=== PATIENT | male | born 1995 | race Caucasian/White ===

== ENCOUNTER 2019-07-24 16:09 | Emergency (ER) | payer OTHER ==
--- NOTE | 2019-07-24 16:41 | ED Physician Documentation ---
PD HPI LOWER EXT INJURY - Stated complaint Stated Complaint: RT KNEE, LEFT FOOT PX - Chief complaint Chief Complaint: Ext Problem - History obtained from History obtained from: Patient (He has had on and off troubles with the right knee for as long as he can remember. It laid him up for about a week last year and is becoming more frequent. Complains of anteromedial knee pain and today cannot walk because of it. Also has pain on the bottom of the left foot. There was no specific injury.) Review of Systems Constitutional: reports: Reviewed and negative Nose: reports: Reviewed and negative Cardiac: reports: Reviewed and negative Respiratory: reports: Reviewed and negative PD PAST MEDICAL HISTORY - Past Medical History Past Medical History: No - Past Surgical History Past Surgical History: No - Present Medications Home Medications: Ambulatory Orders Medication Instructions Recorded Confirmed Ibuprofen [Motrin] 800 mg PO Q8H PRN #30 tablet 07/24/19 - Social History Does the pt smoke?: No Smoking Status: Never smoker Does the pt drink ETOH?: No Does the pt have substance abuse?: No - Immunizations Immunizations are current?: Yes - POLST Patient has POLST: No PD ED PE NORMAL - Vitals Vital signs reviewed: Yes - General General: Alert and oriented X 3, No acute distress - Extremities Extremities: Other (The right knee has a small effusion, no tenderness, no warmth. He has a lot of pain with extension. Ligamentous testing is normal. He did not tolerate grind testing well. The left foot is tender over the plantar fascial without deformity warmth or mass.) - Neuro Neuro: Alert and oriented X 3, Normal speech Results - Vitals Vitals: Vital Signs - 24 hr 07/24/19 16:16 Temperature 36.5 C Heart Rate 129 H Respiratory 16 Rate Blood Pressure 152/114 H O2 Saturation 99 - Rads (name of study) 4 view x-ray of the right knee Radiology: EMP read contemporaneously (Small effusion otherwise negative) Departure - Departure Disposition: 01 Home, Self Care Clinical Impression: Internal derangement of right knee, Plantar fascial fibromatosis of right foot Condition: Good Record reviewed to determine appropriate education?: Yes Instructions: ED Meniscal Injury Knee Poss, ED Plantar Fasciitis Prescriptions: Ibuprofen [Motrin] 800 mg PO Q8H PRN #30 tablet PRN Reason: PAIN &/OR FEVER Comments: I am a little worried about the possibility of a meniscus problem on the right[place] Return for new or worsening symptoms. Do the exercises as shown for the plantar fasciitis in the left foot Your blood pressure was elevated today on check into the emergency department. This does not mean that you have hypertension, it is a common phenomenon to come to the emergency department and have elevated blood pressure. I recommend that you see your primary care physician within the week to have it rechecked when you are feeling better. Max dose ibuprofen is 800mg four times a day Next dose of Tylenol is: 2 x 500 mg tablets (1000 mg), not more than 3-4 times a day Forms: Activity restrictions
--- NOTE | 2019-07-24 17:32 | XRAY Report ---
Reason: knee pain Procedure Date: 07/24/2019 Accession Number: [id number] / [id number] Procedure: XR - Knee 4 View RT CPT Code: Final Report FULL RESULT: EXAM: RIGHT KNEE RADIOGRAPHY EXAM DATE: 07/24/2019 04:58 PM. CLINICAL HISTORY: Knee pain. COMPARISON: None. TECHNIQUE: 3 views. FINDINGS: Bones: Normal. No fractures or bone lesions. Joints: Normal. No effusion. No subluxations. Soft Tissues: Normal. No soft tissue swelling. IMPRESSION: 1. Negative for focal bony abnormality. 2. Small suprapatellar recess joint fluid. RADIA
[2019-07-24 18:02] VITALS: BP 156/103
== END 2019-07-24 18:06 | disposition home or self-care (01) ==
LOC: ED 16:09
DX: M23.91 Unspecified internal derangement of right knee (principal); M72.2 Plantar fascial fibromatosis; R03.0 Elevated blood-pressure reading, without diagnosis of hypertension
CPT/HCPCS: 99283

== ENCOUNTER 2019-08-13 08:18 | Outpatient (CLI) | payer OTHER ==
--- NOTE | 2019-08-13 15:08 | MRI Report ---
Reason: RT KNEE PAIN Procedure Date: 08/13/2019 Accession Number: [id number] / [id number] Procedure: MRI - Knee RT W/O CPT Code: Final Report FULL RESULT: PROCEDURE: Knee RT W/O INDICATIONS: RT KNEE PAIN TECHNIQUE: Noncontrast sagittal PD fast spin echo and T2 fast spin echo with fat saturation, sagittal 3-D gradient sequence with fat saturation; coronal T1 spin echo and PD fast spin echo with fat saturation, and axial PD fast spin echo with fat saturation through the knee. COMPARISON: None. FINDINGS: Image quality: Excellent. Menisci: Medial meniscus is normal in morphology and internal signal. Subtle signal abnormality involving anterior horn of lateral meniscus extending to the superior articulating surface is seen suggestive of focal oblique tear. The meniscal root ligaments appear intact. Cruciate ligaments: There is intrasubstance T2 hyperintense signal involving distal anterior cruciate ligament at its insertion on tibial spine suggestive of sprain/low-grade partial thickness tear. No full-thickness ACL rupture. PCL is intact. Medial structures: The medial collateral ligament appears intact. The posterior oblique ligament, semimembranosus tendon insertions, and oblique popliteal ligament, and meniscocapsular junction appear intact. Visualized portions of the pes anserinus tendons appear normal. No abnormal bursal fluid. Lateral structures: The lateral collateral ligament, long and short heads of the biceps femoris tendon appear intact. The popliteus tendon appears normal; the popliteofibular ligament appears intact. The posterosuperior and anteroinferior popliteomeniscal fascicles appear intact. The arcuate and fabellofibular ligaments appear intact, around the lateral inferior geniculate artery. Iliotibial band appears normal. Anterior structures: The quadriceps and patellar tendons appear intact. Patellar alignment is normal. No femoral trochlear dysplasia or ventral trochlear prominence. No edema in the infrapatellar fat pad. Bones and cartilage: No bone marrow contusions or fractures. The cartilage of the medial and lateral femorotibial compartments, as well as the patellofemoral compartment, appears normal in thickness. Joint space: There is small amount of joint fluid. No Pagan?s cyst. 9 mm cystic area anterior to distal anterior cruciate ligament insertion on tibial spine is seen. Normal appearing synovial plicae are incidentally noted. IMPRESSION: 1. Subtle oblique tear involving anterior horn of lateral meniscus extending to superior articulating surface. No evidence of focal medial meniscal tear. 2. Suggestion of sprain/low-grade intrasubstance partial thickness tear involving mid to distal anterior cruciate ligament. No full-thickness ACL rupture. PCL is intact. Nonspecific 9 mm cystic area anterior to the tibial spine at distal ACL insertion site, which may represent a small ganglion cyst. 3. No marrow edema. No fracture or dislocation. Articulating cartilages are intact. Reviewed by: Shalom Prieto MD on 08/13/2019 3:07 PM PDT Approved by: Shalom Prieto MD on 08/13/2019 3:07 PM PDT Station ID: [id number]
== END 2019-08-13 08:19 | disposition home or self-care (01) ==
LOC: DI 08:18
DX: S83.281A Other tear of lateral meniscus, current injury, right knee, initial encounter (principal); R93.6 Abnormal findings on diagnostic imaging of limbs